=== PATIENT | female | born 1970 | race Two or more races ===

== ENCOUNTER 2025-01-31 11:52 | Emergency (ER) | payer MEDICAID, SELFPAY ==
[2025-01-31 11:59] VITALS: BP 150/87; PULSE 83; RESP 17; TEMP 37.2; O2SAT 97; BMI 26.4
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
== END 2025-01-31 15:26 | disposition home or self-care (01) ==
LOC: SERX 14:54
PROVIDERS: Emergency Provider Nurse Practitioner Primary Care; PCP Family Medicine
DX: R07.89 Other chest pain (principal); M54.16 Radiculopathy, lumbar region; V89.2XXA Person injured in unspecified motor-vehicle accident, traffic, initial encounter; Y92.410 Unspecified street and highway as the place of occurrence of the external cause
CPT/HCPCS: 71046; 72100; 99283

== ENCOUNTER → 2025-02-01 | Outpatient (CLI) | payer MEDICAID, SELFPAY ==
--- NOTE | 2025-02-01 10:30 | XR_ITS ---
Examination: Breast ultrasound, unilateral, left Date and time of exam: February 01, 2025, 11:00 a.m. INDICATIONS: History 8:00 left breast nodule, biopsied December 17, 2020, nodule measuring 12 x 7 mm, biopsy negative Technique: Real-time see scale ultrasonographic imaging performed left breast including all 4 quadrants as well as nipple retroareolar and axillary region. Findings: 8:00 nodule lobular margins 10 x 5 x 7 mm IMPRESSION: BI-RADS Category 2: Benign findings
--- NOTE | 2025-02-01 11:02 | XR_ITS ---
Examination: Screening digital mammography, bilateral Computer aided detection 3-D breast Tomosynthesis, bilateral Date and time of exam: 02/01/2025, 11:15 a.m. Comparisons: December 2018 through October 2020 Indications: Screening Technique: Nonmagnified MLO, CC views of the breasts to been obtained, reconstructed from 3-D Tomosynthesis images. R2 computer aided detection program utilized for evaluation of suspicious masses and/or abnormal calcifications. 3-D Tomosynthesis images obtained. Technologist: Findings: The breasts are heterogeneously dense, which may obscure small masses. No evidence of abnormal masses or suspicious calcifications. Left post biopsy marker clip. Impression: BI-RADS category 1: Negative findings (within normal) Recommend 1 year follow-up mammogram
== END | disposition home or self-care (01) ==
LOC: CDIM 10:47
PROVIDERS: PCP Family Medicine; Referring Provider Physician Assistant; Visit Provider Physician Assistant
DX: R92.313 Mammographic fatty tissue density, bilateral breasts (principal)
CPT/HCPCS: 76641; 77063; 77067